=== PATIENT | female | born 1970 | race Caucasian/White ===

== ENCOUNTER 2016-06-12 15:42 | Emergency (ER) | payer OTHER ==
[2016-06-12 16:11] VITALS: BP 172/96
--- NOTE | 2016-06-12 16:32 | EDM.PDOC ---
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 She states she feels like her current back pain is a kidney stone after she can feel it moving down her back or right side. Patient states she's had a history of blood in her urine. She denies any new trauma and has been taking tramadol, Zanaflex and Motrin for pain. Patient ran out of tramadol. Patient denies any numbness or tingling. Review of systems: As per history of present illness and below otherwise all systems reviewed and negative. Past medical history: As per history of present illness and as reviewed below otherwise noncontributory. Surgical history: As per history of present illness and as reviewed below otherwise noncontributory. Social history: No reported history of drug or alcohol abuse. Family history: As per history of present illness and as reviewed below otherwise noncontributory. Physical exam: General: Well developed, well nourished in NAD HEENT: Atraumatic, normocephalic, pupils reactive, negative for conjunctival pallor or scleral icterus, mucous membranes moist, throat clear, neck supple, nontender, trachea midline. Lungs: Clear to auscultation, breath sounds equal bilaterally, chest nontender. Heart: S1S2, regular, negative for clicks, rubs, or JVD. Abdomen: Soft, nondistended, nontender. Negative for masses or hepatosplenomegaly. Negative for costovertebral tenderness. Pelvis: Stable nontender. Genitourinary: Deferred. Rectal: Deferred. Extremities: Atraumatic, negative for cords or calf pain. Neurovascular unremarkable. Neuro: Awake, alert, oriented. Cranial nerves II through XII unremarkable. Cerebellum unremarkable. Motor and sensory unremarkable throughout. Exam nonfocal. Diagnostics: [] UA negative for blood Therapeutics: [] Tramadol 15 tablet prescription was given Impression: [] Acute exacerbation of Chronic back pain Plan: [] Continue current medications, follow up with primary care physician for further workup Definitive disposition and diagnosis as appropriate pending reevaluation and review of above. - Related Data Allergies/ADRs: Allergies Allergy/AdvReac Type Severity Reaction Status Date / Time No Known Allergies Allergy Verified 06/12/16 16:02 Home Meds: Home Meds Citalopram [Celexa] 20 mg PO DAILY 06/12/16 [History] Dicyclomine [Bentyl] 1 cap PO TID PRN 06/12/16 [History] Estradiol 1 mg PO DAILY 06/12/16 [History] HCTZ/Triamterene [Maxzide 50-75 MG] 1 tab PO DAILY 06/12/16 [History] Metoprolol Tartrate [Lopressor] 0.5 tab PO Q12HR 06/12/16 [History] Pantoprazole Sodium 40 mg PO DAILY 06/12/16 [History] tiZANidine HCl [Zanaflex] 0.5 mg PO TID PRN 06/12/16 [History] Past Medical History Genitourinary History: Reports: Other (see below) Other Genitourinary History: bladder spasms - Past Surgical History GI Surgical History: Reports: None Female Surgical History: Reports: Hysterectomy Social & Family History - Family History Family Medical History: Noncontributory - Tobacco Use Smoking Status *Q: Former Smoker - Caffeine Use Caffeine Use: Reports: Coffee, Energy drinks, Soda, Tea Caffeine Use Comment: 4 drinks day - Recreational Drug Use Recreational Drug Use: No ED ROS GENERAL - Review of Systems Review Of Systems: See Below (The history of present illness) ED EXAM,LOWER BACK PAIN/INJURY - Physical Exam Exam: See Below (See history of present illness) Course - Vital Signs Last Recorded V/S: Last Vital Signs Temp 36.2 C 06/12/16 16:05 Pulse 93 06/12/16 16:05 Resp 16 06/12/16 16:05 BP 172/96 H 06/12/16 16:05 Pulse Ox 96 06/12/16 16:05 - Orders/Labs/Meds Labs: Laboratory Tests 06/12/16 Range/Units 15:40 Urine Color YELLOW Urine Appearance SLT CLOUDY Urine pH 5.5 (5.0-8.0) Ur Specific [place] 1.025 (1.001-1.035) Urine Protein NEGATIVE (NEGATIVE) mg/dL Urine Glucose (UA) NEGATIVE (NEGATIVE) mg/dL Urine Ketones NEGATIVE (NEGATIVE) mg/dL Urine Occult Blood SMALL H (NEGATIVE) Urine Nitrite NEGATIVE (NEGATIVE) Urine Bilirubin NEGATIVE (NEGATIVE) Urine Urobilinogen 0.2 (<2.0) EU/dL Ur Leukocyte Esterase NEGATIVE (NEGATIVE) Urine RBC 0-1 (0-2/HPF) Urine WBC 1-2 (0-5/HPF) Ur Epithelial Cells MODERATE (NONE-FEW) Urine Bacteria MODERATE (NEGATIVE) Urine Mucus LIGHT (NONE-MOD) Departure - Departure Time of Disposition: 17:30 Disposition: Home, Self-Care 01 Condition: good Clinical Impression: Acute exacerbation of chronic low back pain Forms: ED Department Discharge Additional Instructions: The following information is given to patients seen in the emergency department who are being discharged to home. This information is to outline your options for follow-up care. We provide all patients seen in our emergency department with a follow-up referral. The need for follow-up, as well as the timing and circumstances, are variable depending upon the specifics of your emergency department visit. If you don't have a primary care physician on staff, we will provide you with a referral. We always advise you to contact your personal physician following an emergency department visit to inform them of the circumstance of the visit and for follow-up with them and/or the need for any referrals to a consulting specialist. The emergency department will also refer you to a specialist when appropriate. This referral assures that you have the opportunity for follow-up care with a specialist. All of these measure are taken in an effort to provide you with optimal care, which includes your follow-up. Under all circumstances we always encourage you to contact your private physician who remains a resource for coordinating your care. When calling for follow-up care, please make the office aware that this follow-up is from your recent emergency room visit. If for any reason you are refused follow-up, please contact the [facility] Emergency Department at and asked to speak to the emergency department charge nurse. Continue Nakul Jacques Zanaflex [facility] [address] [place] [id number]
== END 2016-06-12 17:40 | disposition home or self-care (01) ==
LOC: MW.ED 15:42
DX: M54.5 Low back pain (principal); G89.29 Other chronic pain; Z79.899 Other long term (current) drug therapy; Z90.710 Acquired absence of both cervix and uterus; Z87.891 Personal history of nicotine dependence
CPT/HCPCS: 81001; 99283